=== PATIENT | female | born 1965 | race Caucasian/White ===

== ENCOUNTER 2018-12-27 11:34 | Emergency (ER) | payer OTHER ==
[~2018-12-27] VITALS: Ht 172.7 cm; Wt 72.6 kg
[2018-12-27] MEDS ORDERED: ACETAMINOPHEN ES 500 MG TABLET PO ONE (11:45)
[2018-12-27] MEDS ORDERED: ACETAMINOPHEN ES 500 MG TABLET ONE (11:55)
[2018-12-27] MEDS ORDERED: NEOMY/BACITRA/POLYMYXIN B OINT UD PACKET TP ONE ×2 (12:06→12:15)
--- NOTE | 2018-12-27 12:47 | NUR ---
Patient discharged to home in stable conditon. Written and verbal after care instructions given. Patient verbalizes understanding of instructions.pt walks i nsteady gait.
== END 2018-12-27 12:48 | disposition home or self-care (01) ==
LOC: ER 11:37
DX: S50.312A Abrasion of left elbow, initial encounter (principal); S69.91XA Unspecified injury of right wrist, hand and finger(s), initial encounter; W18.39XA Other fall on same level, initial encounter; Y93.89 Activity, other specified; Y92.89 Other specified places as the place of occurrence of the external cause; Y99.8 Other external cause status
CPT/HCPCS: 73110; A4663; A9150